=== PATIENT | male | born 1980 | race Hispanic/Latino ===

== ENCOUNTER 2017-08-08 11:46 | Emergency (ER) | payer OTHER ==
[2017-08-08 12:33] VITALS: BP 129/83; PULSE 89; RESP 20; TEMP 98.4; O2SAT 98
[2017-08-08] MEDS ORDERED: Sodium Chloride 0.9% 1,000 ML IV ONE (13:23)
--- NOTE | 2017-08-08 13:40 | C.PDOC ---
History Of Present Illness 36 y/o male presents to ED requesting heroin detox, last used yesterday and for evaluation of withdrawing signs, nausea and shaking. Patient denies CP, SOB, dizziness, palpitation, abd. pain, V/D, UTI sx, denies suicidal ideation, homicidal ideation, hallucinations or any other complaints at this time. At the time of evaluation, AAO#3, slightly anxious, not in any apparent distress. Time Seen by Provider: 08/08/17 13:10 Chief Complaint (Nursing): Substance Abuse History Per: Patient History/Exam Limitations: no limitations Onset/Duration Of Symptoms: Days Current Symptoms Are (Timing): Still Present Suicide/Self Injury Attempted (Context): None Past Medical History Reviewed: Historical Data, Nursing Documentation, Vital Signs Vital Signs: Last Vital Signs Temp 98.4 F 08/08/17 12:27 Pulse 89 08/08/17 12:27 Resp 20 08/08/17 12:27 BP 129/83 08/08/17 12:27 Pulse Ox 98 08/08/17 13:49 - Medical History PMH: Back Problems Surgical History: No Surg Hx Family History: States: No Known Family Hx - Social History Hx Alcohol Use: No Hx Substance Use: No - Immunization History Hx Tetanus Toxoid Vaccination: No Hx Influenza Vaccination: No Hx Pneumococcal Vaccination: No Review Of Systems Constitutional: Negative for: Fever, Chills Cardiovascular: Negative for: Chest Pain Gastrointestinal: Positive for: Nausea. Negative for: Vomiting, Abdominal Pain Skin: Negative for: Rash Psych: Positive for: Withdrawal Physical Exam - Physical Exam Appears: Non-toxic, No Acute Distress Skin: Warm, Dry, No Rash Head: Atraumatic, Normacephalic Eye(s): bilateral: PERRL Nose: No Flaring, No Discharge, No Deformity, No Tenderness Oral Mucosa: Moist, No Drooling Tongue: Normal Appearing Lips: Normal Appearing Throat: No Erythema, No Drooling Neck: Trachea Midline, Supple Chest: Symmetrical, No Deformity, No Tenderness Cardiovascular: Rhythm Regular, No Murmur, No JVD Respiratory: No Decreased Breath Sounds, No Accessory Muscle Use, No Rales, No Rhonchi, No Wheezing Gastrointestinal/Abdominal: Soft, No Tenderness, No Distention, No Guarding, No Rebound Back: No CVA Tenderness, No Vertebral Tenderness Extremity: Normal ROM, No Tenderness, No Pedal Edema, Capillary Refill (<2 seconds), No Deformity, No Swelling Neurological/Psych: Oriented x3, Normal Speech, Normal Cognition, Normal Motor, Normal Sensation, Normal Reflexes ED Course And Treatment O2 Sat by Pulse Oximetry: 98 (RA) Pulse Ox Interpretation: Normal Progress Note: Patient eloped prior to Crisis evaluation Disposition - Disposition Disposition: ELOPEMENT - ER ONLY Disposition Time: 13:20 Condition: STABLE Forms: [facility] (Ukrainian) - Clinical Impression Clinical Impression: Drug dependence - PA / [employer] APPRENTICE / Resident Statement MD/DO has reviewed & agrees with the documentation as recorded. - Scribe Statement The provider has reviewed the documentation as recorded by the Batshevaibkiran Perez All medical record entries made by the Batshevaibkiran were at my direction and personally dictated by me. I have reviewed the chart and agree that the record accurately reflects my personal performance of the history, physical exam, medical decision making, and the department course for this patient. I have also personally directed, reviewed, and agree with the discharge instructions and disposition.
== END 2017-08-08 13:48 | disposition left against medical advice (07) ==
LOC: C.ER 11:46
DX: F11.20 Opioid dependence, uncomplicated (principal)